=== PATIENT | male | born 1995 | race Caucasian/White ===

== ENCOUNTER 2017-04-26 22:26 | Emergency (ER) | payer OTHER ==
[2017-04-27 00:33] VITALS: BP 130/72
--- NOTE | 2017-04-27 02:51 | ED ---
Lower Extremity - HPI Summary HPI Summary: 21M presents with left leg numbness for three days. when woke up he has the numbness with left face and arms numbness that resolve after two hours. He states the numbness has been constant and that it makes it hard for him to walk. He states his entire leg is numb. He denies any pain. He denies any back pain or fever. He denies any weakness. He denies any loss of bowel or bladder or saddle anaesthesia. He denies any family history of TIA, CVA or other neuro disorders. He denies any injury. - History of Current Complaint Chief Complaint: EDExtremityLower Stated Complaint: LEFT LEG NUMBNESS Time Seen by Provider: 04/27/17 01:34 - Allergies/Home Medications Allergies/Adverse Reactions: Allergies Allergy/AdvReac Type Severity Reaction Status Date / Time Amoxicillin Allergy Unknown Verified 08/06/16 00:32 Reaction Details PMH/Surg Hx/FS Hx/Imm Hx Endocrine/Hematology History: Denies: Hx Anticoagulant Therapy Respiratory History: Denies: Hx Asthma - Immunization History Date of Tetanus Vaccine: unk Date of Influenza Vaccine: never Infectious Disease History: Denies: Traveled Outside the [place] in Last 30 Days - Family History Known Family History: Positive: Diabetes - Social History Alcohol Use: None Substance Use Type: Reports: None Smoking Status (MU): Heavy Every Day Tobacco Smoker Review of Systems Negative: Fever Negative: Chest Pain Negative: Shortness Of Breath Positive: Other - numbness left leg All Other Systems Reviewed And Are Negative: Yes Physical Exam Triage Information Reviewed: Yes Vital Signs On Initial Exam: Initial Vitals Temp Pulse Resp BP Pulse Ox 99.4 F 63 16 139/82 100 04/26/17 22:37 04/26/17 22:37 04/26/17 22:37 04/26/17 22:37 04/26/17 22:37 Vital Signs Reviewed: Yes Appearance: Positive: Well-Appearing Skin: Positive: Warm, Dry Head/Face: Positive: Normal Head/Face Inspection Eyes: Positive: Normal, EOMI, CHINEDU, Conjunctiva Clear ENT: Positive: Normal ENT inspection, Pharynx normal, TMs normal Respiratory/Lung Sounds: Positive: Clear to Auscultation, Breath Sounds Present Cardiovascular: Positive: Normal, RRR Musculoskeletal: Positive: Strength/ROM Intact - left leg and back, Other - good pulses, no midline tenderness back, tender left SI joint makes numbness worst. neg SLR Neurological: Positive: Sensory/Motor Intact, Alert, Oriented to Person Place, Time, CN Intact II-III, Reflexes Intact - patella, babinskis, Heel to Toe, Finger to Nose - [place] Coma Scale Best Eye Response: 4 - Spontaneous Best Motor Response: 6 - Obeys Commands Best Verbal Response: 5 - Oriented Coma Scale Total: 15 Diagnostics - Vital Signs Vital Signs Temp Pulse Resp BP Pulse Ox 04/27/17 00:33 98.9 F 64 18 130/72 100 04/26/17 22:37 99.4 F 63 16 139/82 100 - Laboratory Lab Statement: Any lab studies that have been ordered have been reviewed, and results considered in the medical decision making process. - CT back CT Interpretation: No Acute Changes CT Interpretation Completed By: Radiologist head CT Interpretation: No Acute Changes CT Interpretation Completed By: Radiologist Lower Extremity Course/Dx - Course Course Of Treatment: 21M presents with left leg numbness for three days. when woke up he has the numbness with left face and arms numbness that resolve after two hours. He states the numbness has been constant and that it makes it hard for him to walk. He states his entire leg is numb. He denies any pain. He denies any back pain or fever. He denies any weakness. He denies any loss of bowel or bladder or saddle anaesthesia. on exam when press on SI joint has pain and makes numbness worst. no mild line tenderness back. normal neuro exam. normal babinski, patella. CT brain and lumbar normal. could be sciatica component to pain but does not explain numbness face and arms. told to follow up with primary. patient understands and agrees with plan - Diagnoses Differential Diagnosis/HQI/PQRI: Positive: Other - paresthesia, caudia equina, scatica Provider Diagnoses: Leg paresthesia Discharge - Discharge Plan Condition: Good Disposition: HOME Patient Education Materials: Paresthesia (ED) Referrals: Kee Sanderson [Primary Care Provider] - Additional Instructions: Try ibuprofen for potential sciatica component to paresthesias Follow up with primary within 5 days Return to ED if develop any new or worsening symptoms
--- NOTE | 2017-04-27 08:00 | RAD ---
INDICATION: Numbness left side of the body. COMPARISON: There are no prior studies available for comparison. TECHNIQUE: Contiguous axial sections of the brain were obtained from the skull base to the vertex without contrast. FINDINGS: The ventricles, cisterns and sulci are within normal limits. No significant focal abnormality or mass effect is seen. There is no evidence for hemorrhage. No significant focal osseous abnormality is seen. The visualized portion of the paranasal sinuses and mastoid air cells appear clear. IMPRESSION: NO EVIDENCE FOR GROSS ACUTE INFARCT, MASS EFFECT OR HEMORRHAGE.
--- NOTE | 2017-04-27 08:00 | RAD ---
Indication: Numbness down the left lower extremity. CT of the lumbar spine was obtained in the axial plane. Sagittal and coronal reconstructed images were obtained. The vertebral bodies appear normal in height. Normal bone marrow signal is noted. At L5-S1, L4-L5, L3-L4, L2-L3 and L1-L2 the disc appears normal in height. Evidence of disc protrusion is noted. All the intervertebral foramen appear patent. No retroperitoneal adenopathy is noted. The sacroiliac joints are unremarkable. IMPRESSION: No evidence of disc protrusion is noted at any of the lumbar disc levels. Remainder of the lumbar spine is otherwise unremarkable.
== END 2017-04-27 03:00 | disposition home or self-care (01) ==
LOC: ED 22:26
DX: R20.9 Unspecified disturbances of skin sensation (principal); F17.210 Nicotine dependence, cigarettes, uncomplicated
CPT/HCPCS: 70450; 72131; 99282